=== PATIENT | female | born 1955 | race Caucasian/White ===

== ENCOUNTER 2020-12-08 11:26 | Outpatient (CLI) | payer BC, SELFPAY ==
--- NOTE | ~2020-12-08 | MM_ITS ---
EXAMINATION: MM screening harshal LT w douglas HISTORY: Screening mammogram TECHNIQUE: Craniocaudal and mediolateral oblique 3-D tomosynthesis images were obtained and synthetic 2-D images were generated. CAD analysis was submitted and interpreted. COMPARISON: 10/27/2019, 10/24/2018, 10/18/2017 left digital screening mammogram examinations BREAST PARENCHYMAL COMPOSITION: There are scattered areas of fibroglandular density. FINDINGS: There are occasional scattered benign calcifications. There is a stable benign intramammary lymph node in the upper outer quadrant of the left breast. There is no evidence of suspicious mass, calcification, or architectural distortion to suggest malignancy in either breast. There has been no suspicious interval change. IMPRESSION: 1. No mammographic evidence of malignancy. 2. Recommend routine screening mammography in one year. BI-RADS Category 2: Benign finding(s). Reviewed, dictated and finalized at location A. [employer]
== END 2020-12-08 11:27 | disposition home or self-care (01) ==
LOC: ANHIMG 11:29
PROVIDERS: Family Provider Family Medicine Adolescent Medicine; PCP Family Medicine Adolescent Medicine; Visit Provider Nurse Practitioner Obstetrics & Gynecology
DX: Z12.31 Encounter for screening mammogram for malignant neoplasm of breast (principal)
CPT/HCPCS: 77063; 77067

== ENCOUNTER 2021-01-25 07:43 | Outpatient (CLI) | payer BC, SELFPAY ==
--- NOTE | ~2021-01-25 | DEXA_ITS ---
Bone Density Report Name: Margot Vee Age: 65 Sex: Female Ethnicity: White Date of : 1955 Indication: postmenopausal; parental hip fracture; height loss; cancer; hysterectomy; Referring Provider: Cordelia, Maggie Flores Study: Bone densitometry was performed. Exam Date: January 25, 2021 Accession number: [id number] Bone Density: Region BMD T-score Z-score Classification AP Spine (L1-L4) 1.067 0.2 1.9 Normal Femoral Neck (Left) 0.624 -2.0 -0.5 Osteopenia Total Hip (Left) 0.912 -0.2 1.0 Normal Total Hip Bilateral Avg 0.903 -0.3 0.9 Normal Femoral Neck (Right) 0.691 -1.4 0.1 Osteopenia Total Hip (Right) 0.894 -0.4 0.8 Normal World Health Organization criteria for BMD impression classify patients as: Normal (T-score at or above -1.0), Osteopenia (T-score between -1.0 and -2.5), or Osteoporosis (T-score at or below -2.5). 10-year Fracture Risk(1): Major Osteoporotic Fracture 18% Hip Fracture 1.3% Reported Risk Factors: [place] (), Neck BMD=0.624, BMI=38.3, parental fracture (1) FRAX(R) Version 3.08. Fracture probability calculated for an untreated patient. Fracture probability may be lower if the patient has received treatment. Clinical Information Provided by Patient: Parent has had a hip fracture Has used the following medications: Vitamin D, Calcium Has the following medical conditions: Cancer, Hysterectomy Patient maximum height was 66 Menopause Age: 43 Drinks caffeinated beverages Onset of menses at age 14 Number of children 2 Impression: The patient has low bone mass, based on the Left Femoral Neck T-score. The patient has an estimated ten-year risk of hip fracture of 1.3% and an estimated ten-year risk of major fracture of 18%, based on the WHO FRAX algorithm. The patient has risk factors, including: parental hip fracture. Discussion: BONE DENSITY IS LOW AT ONE OR MORE SKELETAL SITES. This patient's lowest T-score is low at one or more skeletal sites. It meets the World Health Organization's (WHO) criteria for ?low bone mass? (T-score between -1.0 and -2.5). The patient's 10-year risk of fracture as calculated by FRAX is less than the threshold where pharmacological therapy is recommended by the National Osteoporosis Foundation (NOF). However, all treatment decisions require clinical judgment and consideration of individual patient factors, including patient preferences, comorbidities, previous drug use, risk factors not captured in the FRAX model (e.g., frailty, falls, vitamin D deficiency, increased bone turnover, interval significant decline in bone density) and possible under or overestimation of fracture risk by FRAX. The patient should follow a healthful lifestyle (good nutrition with adequate calcium and vitamin D, and appropriate weight-bearing exercise). Follow-Up:
== END 2021-01-25 07:44 | disposition home or self-care (01) ==
PROVIDERS: PCP Family Medicine Adolescent Medicine; Visit Provider Nurse Practitioner Obstetrics & Gynecology
DX: Z78.0 Asymptomatic menopausal state (principal); M85.852 Other specified disorders of bone density and structure, left thigh; M85.851 Other specified disorders of bone density and structure, right thigh
CPT/HCPCS: 77080

== ENCOUNTER 2021-02-21 11:40 | Outpatient (CLI) | payer BC, SELFPAY ==
--- NOTE | 2021-02-21 12:57 | ECG_ITS ---
Measurements Intervals [place] Rate: 51 P: 59 DE: 177 QRS: 14 QRSD: 99 T: 30 QT: 432 QTc: 398 Interpretive Statements SINUS BRADYCARDIA VOLTAGE CRITERIA FOR LVH BORDERLINE ECG Electronically Signed On 02-21-2021 13:36:38 CDT by Danilo Santacruz D.O.
[2021-02-21 13:30] LABS: Basophils Percent Auto 0.6 % (0.2-1.2); Eosinophils Absolute Auto 0.4 K/mm3 (0-0.3); Eosinophils Percent Auto 5.9 % (0-4.4); Hematocrit 37.7 % (37.0-47.0); Hemoglobin 12.2 g/dL (12.0-15.0); Immature Granulocyte Absolute 0.02 K/mm3 (0.00-0.031); Immature Granulocyte Percent A 0.3 % (0-0.5); Lymphocytes Absolute Auto 1.84 K/mm3 (0.9-3.2); Lymphocytes Percent Auto 28.4 % (18.3-44.2); Mean Corpuscular HGB Conc 32.4 g/dl (32-36); Mean Corpuscular Hemoglobin 30.6 pg (26-34); Mean Corpuscular Volume 94.5 fl (80-100); Mean Platelet Volume 9.2 fl (7.4-10.4); Monocytes Absolute Auto 0.4 K/mm3 (0.1-0.6); Monocytes Percent Auto 6.6 % (2.6-8.5); Neutrophils Absolute Auto 3.8 K/mm3 (1.3-6.7); Neutrophils Percent Auto 58.2 % (45.5-73.1); Platelet Count Result 194 k/mm3 (150-375); Red Blood Count 3.99 M/mm3 (4.2-5.4); Red Cell Distribution Width 13.3 % (11.5-14.5); White Blood Count 6.5 K/mm3 (4.5-10.0)
[2021-02-21 13:34] LABS: Add Urine Microscopic? YES; Appearance Urine Cloudy (Clear); Bacteria Urine Trace /hpf; Bilirubin Urine Negative (Negative); Color Urine Yellow (Yellow); Glucose Urine UA Negative (Negative); Ketones Urine Negative (Negative); Leukocyte Esterase Ur 2+ LEU/UL (Negative); Mucus Urine Rare /lpf; Nitrate Urine Negative (Negative); Protein Urine Negative (Negative); Squamous Epithelial Cell Urine Few /hpf (Few); Urobilinogen Urine Negative mg/dL (<2.0)
[2021-02-21 13:38] LABS: Hemoglobin A1C 5.2 % (<5.7)
[2021-02-21 13:42] LABS: Albumin Level 4.3 g/dL (3.5-5.1); Anion Gap 5 mmol/L (8-16); Blood Urea Nitrogen 31 mg/dL (7-17); Calcium 9.4 mg/dL (8.4-10.2); Carbon Dioxide 33 mmol/L (22-30); Chloride 101 mmol/L (98-107); Estimated Glomerular Filt Rate > 60; Glucose 80 mg/dL (65-105); INR 0.9; Potassium 4.5 mmol/L (3.4-5.0); Prothrombin Time 13.2 Seconds (11.1-14.7); Sodium 139 mmol/L (137-145)
[2021-02-21 13:43] LABS: Partial Thromboplastin Time 37.8 SECONDS (22.3-36.8)
[2021-02-21 13:45] LABS: Urine Cotinine NEGATIVE
[2021-02-21 13:46] LABS: Blood Urine Negative (Negative)
== END 2021-02-21 11:41 | disposition home or self-care (01) ==
LOC: ANHSURGERY 11:43
PROVIDERS: PCP Family Medicine Adolescent Medicine; Visit Provider Orthopaedic Surgery
DX: M17.12 Unilateral primary osteoarthritis, left knee (principal); Z01.818 Encounter for other preprocedural examination; R94.31 Abnormal electrocardiogram [ECG] [EKG]
CPT/HCPCS: 80048; 80307; 81001; 82040; 83036; 85025; 85610; 85730; 86850; 86900; 86901; 87081; 87086; 87088; 93005

== ENCOUNTER → 2021-02-26 01:29 | Outpatient (CLI) | payer BC, SELFPAY ==
[2021-02-26 19:16] LABS: SARS-CoV-2 RNA PCR Negative
== END ==
PROVIDERS: PCP Family Medicine Adolescent Medicine; Visit Provider Orthopaedic Surgery
DX: Z01.812 Encounter for preprocedural laboratory examination (principal); Z20.822 Contact with and (suspected) exposure to COVID-19
CPT/HCPCS: C9803; U0003; U0005

== ENCOUNTER 2021-03-02 14:34 | Inpatient (IN) | payer BC, SELFPAY ==
[2021-02-21 11:57] VITALS: BMI 37.8
[2021-02-21 12:27] VITALS: BP 151/79; PULSE 60; RESP 16; TEMP 36.7; O2SAT 99
[2021-03-02] VITALS (14 sets, daily range): BP systolic 103–162; BP diastolic 59–88; PULSE 64–87; RESP 10–20; TEMP 36–36.6; O2SAT 96–100
--- NOTE | ~2021-03-02 | XR_ITS ---
EXAMINATION: XR knee LT 2V DATE: 03/02/2021 13:36 INDICATION: Status post left total knee arthroplasty. TECHNIQUE: Portable AP and crosstable lateral views of the left knee were obtained. COMPARISON: 02/21/2021 FINDINGS: Left total knee arthroplasty without patellar resurfacing appears well seated and in near anatomic al ignment. No fractures identified. Skin miguel a and expected postoperative subcutaneous and intra-ar ticular gas. IMPRESSION: 1. Left total knee arthroplasty, negative for postoperative purposes. Reviewed, dictated and finalized at location A.
--- NOTE | 2021-03-02 07:21 | WPDHPUPDATE1 ---
History and Physical Update Update Date/Time: 03/02/21 07:21 History and Physical has been reviewed, including an updated exam of the patient. There are NO changes in the patient's condition. Risks, benefits, and alternatives have been discussed and questions answered. Patient agrees to proceed with procedure.
[2021-03-02] MEDS: ACETAMINOPHEN 500 MG TABLET 1000 MG PO (09:23)
--- NOTE | 2021-03-02 09:34 | WPDANESEPPF ---
Anes - Initial Pre Proc Eval Procedure: Operation Date: 03/02/21 11:00 Proposed Procedures p Left Total Knee Arthroplasty - Reece Kauffman MD Date/Time: 03/02/21 09:34 Surgeon: Reece Kauffman MD Pre Op Diagnosis: Left Knee DJD Patient Data Age: 65 Gender: F Height: 1.6 m Weight: 96 kg Last Vital Signs Temp 36.0 C L 03/02/21 08:54 Pulse 64 03/02/21 08:54 Resp 16 03/02/21 08:54 BP 151/66 H 03/02/21 08:54 Pulse Ox 98 03/02/21 08:54 Allergies Allergy/AdvReac Type Severity Reaction Status Date / Time adhesive tape Allergy Severe BLISTERS Verified 02/21/21 11:58 Penicillins Allergy Severe Rash Verified 02/21/21 11:58 niacin Allergy Intermediate HIVES AND Verified 03/02/21 09:12 ITCHING Home Medications Medication Instructions Recorded Confirmed Type acetaminophen 500 mg tablet 500 mg PO Q6H PRN 08/26/20 03/02/21 History ascorbate calcium (vitamin C) 500 500 mg PO DAILY tablet 08/26/20 03/02/21 History mg tablet aspirin 81 mg tablet,delayed 81 mg PO DAILY 08/26/20 03/02/21 History release atorvastatin 20 mg tablet 20 mg PO DAILY 08/26/20 03/02/21 History cetirizine 10 mg tablet 10 mg PO DAILY 08/26/20 03/02/21 History diclofenac sodium 75 mg 75 mg PO BID 08/26/20 03/02/21 History tablet,delayed release garlic 1,000 mg capsule 1,000 mg PO DAILY 08/26/20 03/02/21 History levothyroxine 125 mcg tablet 125 mcg PO DAILY 08/26/20 03/02/21 History lisinopril 10 mg tablet 10 mg PO DAILY 08/26/20 03/02/21 History omega-3 fatty acids 500 mg capsule 500 mg PO DAILY 08/26/20 03/02/21 History pediatric multivitamin no.17 1 tablet PO DAILY 08/26/20 03/02/21 History calcium carbonate-vitamin D3 2 cap PO DAILY 02/21/21 03/02/21 History [Calcium 600 with Vitamin D3] cholecalciferol (vitamin D3) 50 mcg PO DAILY 02/21/21 03/02/21 History cyanocobalamin (vitamin B-12) 1,000 mcg PO DAILY 02/21/21 03/02/21 History diphenhydramine HCl [Benadryl] 25 mg PO HS 02/21/21 03/02/21 History pyridoxine (vitamin B6) 100 mg PO DAILY 02/21/21 03/02/21 History tramadol 50 mg tablet 50 mg PO BID PRN #30 tablet 02/21/21 03/02/21 Rx ciprofloxacin HCl 500 mg tablet 500 mg PO Q12H #14 tablet 02/28/21 03/02/21 Rx Patient hx anesthesia problems: none Family hx anesthesia problems: none PMFSH Past Medical History Medical History (Updated 03/01/21 @ 13:17 by Karthik Paulino DO) Abnormality of heart beat Arthritis Bilateral knee pain BMI greater than 40 Degenerative joint disease of knee High cholesterol History of right breast cancer Hypertension Hypothyroidism IT band syndrome Osteoporosis PONV (postoperative nausea and vomiting) Thyroid function study abnormality Trochanteric bursitis, right hip Vision abnormalities Surgical History Surgical History (Updated 03/01/21 @ 13:17 by Karthik Paulino DO) History of hysterectomy History of total right knee replacement History of tubal ligation Total knee replacement status Family History Family History Other Diabetes mellitus Family history of arthritis Family history of cardiovascular disease Family history of lung disease Social History Social History Smoking status: Never smoker Additional smoking assessment comments: DENIES ANY FORM OF TOBACCO USE Alcohol intake: current Living arrangements: with family Spiritual care concerns: No Anes - Eval Final PreProcedure Day of Procedure 03/02/21 09:34 Patient weight: obese Heart: regular rate and rhythm Lungs: clear to auscultation and normal air movement Airway: Mallampati scale class II Neurological: alert and oriented Last oral intake: >/= 8 hours ASA classification: III Emergent: no Anesthetic plan: proceed Anesthesia type and monitoring: general LMA and standard monitoring Informed Consent: The patient's anesthetic plan and its attendant risks and benefits we
--- NOTE | 2021-03-02 09:35 | WPDANESPNB ---
Anes - Peripheral Nerve Block Date/Time: 03/02/21 09:35 I have discussed with the patient/family/POA the placement of a peripheral nerve block for post-operative pain management, including associated risks, benefits, complications, and side effects. Alternative methods of post-operative analgesia were detailed. Questions were solicited and answers provided to the satisfaction of the patient/family/POA. Time-Out: A pre-procedural Time-Out was completed immediately before starting the procedure and confirmed: Patient Identification, Site, Procedure, Patient Position and the Availability of Requisite Equipment. Clinical Indications: Acute post-operative pain management requested by the operative surgeon. Nerve Block Insertion Note Anes-nerve block: adductor canal left Patient position: supine Skin prep: chlorhexidine Needle: 22 gauge, stimulating, insulated echogenic needle. Needle length: 80 mm Technique: ultrasound Injectate: bupivacaine 0.5% with epi 5 mcg/ml (30cc - no epi) Observations: tolerated well Complications: none Procedure start time:: 1044 Procedure end time:: 1047
[2021-03-02] MEDS: LACTATED RINGERS 1,000 ML 30 ML IV CONT ×2 (09:48→13:19)
[2021-03-02 10:15] LABS: Partial Thromboplastin Time 33.2 SECONDS (22.3-36.8)
[2021-03-02] MEDS: TRANEXAMIC ACID 1,000MG/ISO100 1,000 MG/100 ML BAG 200 MG IVPB (10:25)
[2021-03-02] MEDS: ceFAZolin 2 GM/D5W 50 ML 2 GM/50 ML BAG IVPB ×2 (11:05→18:27)
[2021-03-02] MEDS: GENTAMICIN BONE CEMENT REFOBACIN 1 EACH TOPICAL (12:12)
--- NOTE | 2021-03-02 13:15 | PM.PROC ---
Procedure Note - Detailed Date of procedure: 03/02/21 Pre-op diagnosis: Left Knee DJD Post-op diagnosis: same Procedure performed: L TKA Description of procedure: THE LEFT KNEE WAS PREPPED AND DRAPED IN THE STERILE FASHION. A MIDLINE SKIN INCISION WAS MADE. A MEDIAL PARAPATELLAR ARTHROTOMY WAS MADE. THE PATELLA WAS EVERTED. THERE WAS TRICOMPARTMENT DJD. THERE WAS MINIMAL PATELLA DJD. AN INTRAMEDULLARY CARLY WAS PLACED IN THE FEMUR. A DISTAL FEMORAL CUT WAS MADE IN 5 DEGREES OF VALGUS REMOVING APPROXIMATELY 9 MM OF BONE FROM THE DISTAL FEMUR. THE FEMUR WAS SIZED TO 65. A 65 FEMORAL CUTTING BLOCK WAS PLACED IN 3 DEGREES OF EXTERNAL ROTATION AND IN ALIGNMENT WITH JOE'S LINE AND THE TRANSEPICONDYLAR AXIS. ANTERIOR POSTERIOR AND CHAMFER CUTS WERE MADE. THE CUTS WERE EXCELLENT. NEXT AN INTRAMEDULLARY CUTTING GUIDE WAS PLACED IN THE TIBIA. A TRANS TIBIAL CUT WAS MADE ALONG THE LONG AXIS OF THE TIBIA. APPROXIMATELY 10 MM OF BONE WAS REMOVED FROM THE HIGH SIDE OF THE TIBIA. THE TIBIA WAS THEN PLANED TO A SMOOTH SURFACE. POSTERIOR FEMORAL OSTEOPHYTES WERE REMOVED FROM THE FEMORAL CONDYLES. A 75 TIBIAL TRIAL WAS PLACED IN ALIGNMENT WITH THE 1/3 MEDIAL ASPECT OF THE TIBIAL TUBERCLE. THEN A 65 FEMORAL TRIAL COMPONENT WAS PLACED. BOTH HAD EXCELLENT FITS. A 10 MM POLYETHYLENE TRIAL COMPONENT WAS PLACED. THE KNEE WAS TAKEN THROUGH A RANGE OF MOTION. THE KNEE CAME OUT TO FULL EXTENSION. THERE WAS NO ABNORMAL TILT TO THE PATELLA. THERE WAS GOOD A/P AND VARUS/VALGUS STABILITY. THERE WAS NO EXCESSIVE ROLL BACK WITH FLEXION. THE TRIAL COMPONENTS WERE REMOVED. THEN A 65 FEMORAL COMPONENT AND 75 TIBIAL COMPONENT WITH A 10 CR POLYETHYLENE COMPONENT WERE CEMENTED INTO PLACE. ONCE THE CEMENT WAS HARD THE KNEE WAS TAKEN THROUGH A ROM AGAIN AND FOUND TO BE STABLE WITH NO PATELLA TILT NO EXCESSIVE ROLL BACK WITH FLEXION AND GOOD STABILITY WITH COMPLETE AND FULL EXTENSION. THE KNEE WAS IRRIGATED WITH STERILE BETADINE AND WATER FOR ABOUT 3 MINUTES. THE BLEEDERS WERE CAUTERIZED. THE ARTHROTOMY WAS REPAIRED WITH NUMBER 1 VICRYL. THE SUB CUTANEOUS LAYER WITH 2-0 VICRYL AND THE SKIN WITH DARNELL. THE WOUND WAS WASHED AND A STERILE DRESSING WAS APPLIED. PATIENT WAS EXTUBATED. Anesthesia: GETA Surgeon: Reece Kauffman MD Estimated blood loss (mL): 100 Complications: No immediate complications Condition: stable Disposition: PACU
[2021-03-02] MEDS: fentaNYL CITRATE INJ (*CRX) 100 MCG/2 ML VIAL 25 MCG IV PUSH ×8 (13:39→14:20)
[2021-03-02] MEDS: SODIUM CHLORIDE 0.9% IV 1,000 ML 125 ML IV CONT ×2 (14:58→23:13)
[2021-03-02] MEDS: oxyCODONE/ACETAMINOPHEN (*CRX) 5-325 MG TABLET 1 TABLET PO ×2 (15:02→20:36)
[2021-03-02] MEDS: ONDANSETRON INJ 4 MG/2 ML VIAL IV PUSH ×2 (15:56→20:36)
--- NOTE | 2021-03-02 16:10 | ADMGEN ---
This patient, Margot Vee, was admitted to Medical Room 243-01 from PACU reprot received from Ramila RHODES. Patient/family oriented to hospital policies and general routines including ID bracelet, bed and alarms, visiting hours, pain management, procedures, bathroom and other care routines, personal items, smoking policy, room service/diet, and visiting hours. Information on how to activate the Rapid Response Team has been discussed. Patient/Family are encouraged to report perceived risks to care and to ask questions if they do not understand what they are told or what they should do.
[2021-03-02] MEDS: DOCUSATE SODIUM 100 MG CAPSULE PO (17:13)
[2021-03-02] MEDS: FAMOTIDINE 20 MG TABLET PO (20:38)
[2021-03-03] MEDS: ONDANSETRON INJ 4 MG/2 ML VIAL IV PUSH ×2 (00:37→06:04)
[2021-03-03] MEDS: oxyCODONE/ACETAMINOPHEN (*CRX) 5-325 MG TABLET 1 TABLET PO ×4 (00:37→15:44)
[2021-03-03] MEDS: ceFAZolin 2 GM/D5W 50 ML 2 GM/50 ML BAG IVPB ×2 (03:05→10:33)
[2021-03-03 04:19] VITALS: BP 131/61; PULSE 72; RESP 16; TEMP 36.2; O2SAT 100
[2021-03-03] MEDS: LEVOTHYROXINE SODIUM 125 MCG TABLET PO (05:33)
[2021-03-03 05:36] LABS: Basophils Percent Auto 0.1 % (0.2-1.2); Hematocrit 31.3 % (37.0-47.0); Hemoglobin 10.3 g/dL (12.0-15.0); Immature Granulocyte Absolute 0.03 K/mm3 (0.00-0.031); Immature Granulocyte Percent A 0.3 % (0-0.5); Lymphocytes Absolute Auto 0.86 K/mm3 (0.9-3.2); Mean Corpuscular HGB Conc 32.9 g/dl (32-36); Mean Corpuscular Hemoglobin 30.7 pg (26-34); Mean Corpuscular Volume 93.4 fl (80-100); Mean Platelet Volume 9.1 fl (7.4-10.4); Monocytes Absolute Auto 0.9 K/mm3 (0.1-0.6); Monocytes Percent Auto 10.4 % (2.6-8.5); Neutrophils Absolute Auto 6.8 K/mm3 (1.3-6.7); Neutrophils Percent Auto 79.2 % (45.5-73.1); Platelet Count Result 183 k/mm3 (150-375); Red Blood Count 3.35 M/mm3 (4.2-5.4); Red Cell Distribution Width 13.2 % (11.5-14.5); White Blood Count 8.6 K/mm3 (4.5-10.0)
[2021-03-03 05:51] LABS: Anion Gap 5 mmol/L (8-16); Blood Urea Nitrogen 14 mg/dL (7-17); Calcium 8.8 mg/dL (8.4-10.2); Carbon Dioxide 31 mmol/L (22-30); Chloride 99 mmol/L (98-107); Estimated CRCL calculation 77 ml/min; Estimated Glomerular Filt Rate > 60; Glucose 114 mg/dL (65-105); Potassium 4.2 mmol/L (3.4-5.0); Sodium 135 mmol/L (137-145)
[2021-03-03 05:53] VITALS: BP 128/62; PULSE 72; RESP 16; TEMP 36.7; O2SAT 100
--- NOTE | 2021-03-03 07:46 | WPDANESPN ---
Anes - Prog Note Post-Op Date/Time: 03/03/21 07:47 Cardiovascular status: normal Respiratory status: normal Airway patency: baseline Mental status: baseline Post-Op hydration status: normal Vital Signs: Last Vital Signs Temp 36.7 C 03/03/21 05:53 Pulse 72 03/03/21 05:53 Resp 16 03/03/21 05:53 BP 128/62 03/03/21 05:53 Pulse Ox 100 03/03/21 05:53 Pain Score (VAS): 0 I/O: Intake & Output 03/02/21 03/02/21 03/03/21 15:59 23:59 07:59 Intake Total 550 1440 550 Output Total 800 Balance 550 1440 -250 Laboratory Tests 03/03/21 05:13 03/03/21 05:13 03/02/21 03/03/21 03/03/21 09:38 05:13 05:13 WBC 8.6 RBC 3.35 L Hgb 10.3 L Hct 31.3 L MCV 93.4 MCH 30.7 MCHC 32.9 RDW 13.2 Plt Count 183 MPV 9.1 Immature Gran % (Auto) 0.3 Neut % (Auto) 79.2 H Lymph % (Auto) 10.0 L [place] % (Auto) 10.4 H Eos % (Auto) 0.0 Baso % (Auto) 0.1 L Lymph # (Auto) 0.86 L [place] # (Auto) 0.9 H Eos # (Auto) 0.0 Baso # (Auto) 0.0 Abs Immat Gran (auto) 0.03 Absolute Neuts (auto) 6.8 H Absolute Nucleated RBC 0.0 Nucleated RBC % 0.0 APTT 33.2 Sodium 135 L Potassium 4.2 Chloride 99 Carbon Dioxide 31 H Anion Gap 5 L BUN 14 D Creatinine 0.70 Estim Creat Clear Calc 77 Estimated GFR > 60 Glucose 114 H Calcium 8.8 Post-procedural complaints: none Patient Feedback: Patient satisfied with anesthetic care.
[2021-03-03 08:19] VITALS: BP 130/46; PULSE 79; RESP 20; TEMP 36; O2SAT 96
[2021-03-03] MEDS: CELECOXIB 200 MG CAPSULE PO ×2 (08:43→16:16)
[2021-03-03] MEDS: ASPIRIN 325 MG ENTERIC TABLET 650 MG PO (08:43)
[2021-03-03] MEDS: DOCUSATE SODIUM 100 MG CAPSULE PO ×2 (08:43→16:17)
[2021-03-03] MEDS: ATORVASTATIN 20 MG TABLET PO (08:44)
[2021-03-03] MEDS: lisinopriL 10 MG TABLET PO (08:44)
[2021-03-03] MEDS: FAMOTIDINE 20 MG TABLET PO (08:44)
--- NOTE | 2021-03-03 09:10 | PM.PNORT ---
Progress Note: A&P Assessment and Plan (1) Total knee replacement status: Qualifiers: Laterality: right Qualified Code(s): Z96.651 - Presence of right artificial knee joint Code(s): Z96.659 - Presence of unspecified artificial knee joint Status: Acute Assessment and Plan: POD #1: Left TKA Continue PT/OT. WBAT. Walker. HIGH FALL RISK. Continue pain control. Ice. No pillow under knee. Continue DVT prophylaxis. SCDs. Incentive Spirometry. Monitor Dressing. Change prior to discharge. Dispo: Home with Home Health pending progress with PT/OT. Subjective Subjective Date/Time Seen: 03/03/21 09:10 POD #1: Left TKA No new complaints. Pain well controlled. Sitting up in chair. Review of Systems Review of Systems: All systems reviewed & are unremarkable except as noted in HPI and below Constitutional: Constitutional: Denies chills, Denies fatigue, Denies fever(s) and Denies headache(s) ENT: Denies headache(s) Cardiovascular: Cardiovascular: Denies chest pain, Denies diaphoresis, Denies palpitations and Denies dyspnea Respiratory: Respiratory: Denies dyspnea Gastrointestinal: Gastrointestinal: Denies abdominal pain, Denies constipation, Denies nausea and Denies vomiting Genitourinary: Genitourinary: Reports nocturia and Denies dysuria Musculoskeletal: Musculoskeletal: Reports arthralgias (Left Knee ), Reports joint swelling (Left Knee ) and Reports limited range of motion (ROM limited due to recent surgical intervention LEFT Knee ) Neurologic: Denies headache(s) Endocrine: Endocrine: Denies palpitations Exam Const: General: comfortable and no acute distress Resp: Effort & Inspection: normal respiratory effort Cardio: Rate: regular rate Rhythm: regular rhythm GI: GI Palp: Yes Soft to palpation, No Tenderness to palpation present (GI) and No Guarding due to palpation present (GI) Skin: Wounds: wounds noted Other: Incision c/d/i. No surrounding redness/warmth. No hematoma. Mild ecchymosis. No wound dehiscence Neuro: Cognition (Neuro): normal cognition Other: NV intact aside from block. Moves toes. Sensation intact to light touch. +ankle dorsiflexion/plantarflexion. Extrem: Left lower extremity: normal to inspection, normal capillary refill, knee Details: tenderness (diffuse ), swelling (moderate consistent to recent surgery ), abnormal ROM (limited due to recent surgery ) and ecchymosis (as expected with recent surgery. NO hematoma. ), lower leg (Negative Chilo's Sign ) Details: no edema, ankle (+ankle dorsiflexion/plantarflexion ) Details: normal to inspection and normal ROM and foot Details: normal capillary refill, vascular exam Details: dorsalis pedis pulse present and motor-sensory exam two point discrimination normal and light-touch normal Other: Incision left TKA dressing c/d/i. No hematoma. No signs of infection. No wound dehiscence. Psych: Mental Status: mental status grossly normal Objective Data Vital Signs Vital Signs: Vital Signs - 24 hr 03/02/21 13:19 03/02/21 13:30 03/02/21 13:45 Temperature 36.5 C Pulse Rate 82 87 86 Respiratory Rate 10 L 20 20 Blood Pressure 103/59 L 115/62 136/79 Pulse Oximetry 96 100 100 03/02/21 14:00 03/02/21 14:15 03/02/21 14:30 Temperature Pulse Rate 85 85 80 Respiratory Rate 18 18 16 Blood Pressure 145/80 H 150/81 H 140/75 Pulse Oximetry 99 99 03/02/21 14:40 03/02/21 14:55 03/02/21 15:25 Temperature 36.6 C 36.5 C 36.5 C Pulse Rate 75 75 73 Respiratory Rate 16 16 16 Blood Pressure 156/77 H 151/65 H 153/78 H Pulse Oximetry 100 100 97 03/02/21 16:25 03/02/21 18:00 03/02/21 22:10 Temperature 36.5 C 36.5 C 36.3 C L Pulse Rate 72 80 84 Respiratory Rate 16 18 16 Blood Pressure 162/85 H 151/73 H 129/88 Pulse Oximetry 96 100 98 03/02/21 22:11 03/03/21 04:19 03/03/21 05:53 Temperature 36.3 C L 36.2 C L 36.7 C Pulse Rate 84 72 72 Respiratory Rate 16 16 16 Blood Pressure 134/59 L 131/61 128/62 Pulse
[2021-03-03 10:41] VITALS: O2SAT 96
[2021-03-03 12:19] VITALS: BP 124/58; PULSE 76; RESP 20; TEMP 36.8; O2SAT 97
--- NOTE | 2021-03-03 14:06 | PM.DS ---
DS: Admitting Diagnosis Admitting Diagnosis Admitting Diagnosis: Left knee DJD DS: Discharge Diagnosis Discharge Diagnosis (1) Total knee replacement status: Qualifiers: Laterality: right Qualified Code(s): Z96.651 - Presence of right artificial knee joint Code(s): Z96.659 - Presence of unspecified artificial knee joint Status: Acute Assessment and Plan: POD #1: Left TKA Continue PT/OT. WBAT. Walker. HIGH FALL RISK. Continue pain control. Ice. No pillow under knee. Continue DVT prophylaxis. SCDs. Incentive Spirometry. Monitor Dressing. Change prior to discharge. Dispo: Home with Home Health pending progress with PT/OT. DS: Summary Hospital Course Reason for hospitalization: left total knee arthroplasty Hospital Course: 65-year-old female admitted status post left total knee arthroplasty for postoperative medical management, pain control and physical/occupational therapy. Patient progressed well with PT and OT on postop day 1. No postop complications noted. Patient's pain has been well controlled. She has been cleared by Physical therapy and Occupational therapy to be discharged home with home health this time. She will go home with home health and will follow up in the outpatient orthopedic clinic in approximately 3 weeks. Her dressing will be changed prior to discharge. She will be sent home with 1 additional dressing to be changed in 5 days by the home health nurse. All questions were answered and patient felt prepared for discharge. Status at Discharge Functional status at discharge: uses cane/walker Overall status at discharge: patient is back to baseline Time Spent with Patient Time attestation: Total time spent providing and/or coordinating discharge services: Exam Const: General: comfortable and no acute distress Resp: Effort & Inspection: normal respiratory effort Cardio: Rate: regular rate Rhythm: regular rhythm GI: GI Palp: Yes Soft to palpation, No Tenderness to palpation present (GI) and No Guarding due to palpation present (GI) Skin: Wounds: wounds noted Other: Incision c/d/i. No surrounding redness/warmth. No hematoma. Mild ecchymosis. No wound dehiscence Neuro: Cognition (Neuro): normal cognition Other: NV intact aside from block. Moves toes. Sensation intact to light touch. +ankle dorsiflexion/plantarflexion. Extrem: Left lower extremity: normal to inspection, normal capillary refill, knee, lower leg (Negative Chilo's Sign ), ankle (+ankle dorsiflexion/plantarflexion ) and foot Other: Incision left TKA dressing c/d/i. No hematoma. No signs of infection. No wound dehiscence. Psych: Mental Status: mental status grossly normal DS: Data Data Completed and Pending Labs on day of discharge: Labs from last 24 hours 03/03/21 03/03/21 05:13 05:13 WBC 8.6 RBC 3.35 L Hgb 10.3 L Hct 31.3 L MCV 93.4 MCH 30.7 MCHC 32.9 RDW 13.2 Plt Count 183 MPV 9.1 Immature Gran % (Auto) 0.3 Neut % (Auto) 79.2 H Lymph % (Auto) 10.0 L [place] % (Auto) 10.4 H Eos % (Auto) 0.0 Baso % (Auto) 0.1 L Lymph # (Auto) 0.86 L [place] # (Auto) 0.9 H Eos # (Auto) 0.0 Baso # (Auto) 0.0 Abs Immat Gran (auto) 0.03 Absolute Neuts (auto) 6.8 H Absolute Nucleated RBC 0.0 Nucleated RBC % 0.0 Sodium 135 L Potassium 4.2 Chloride 99 Carbon Dioxide 31 H Anion Gap 5 L BUN 14 D Creatinine 0.70 Estim Creat Clear Calc 77 Estimated GFR > 60 Glucose 114 H Calcium 8.8 Discharge Plan Discharge Attending physician on discharge: Reece Kauffman Discharging Clinician: Anamaria Granados Anticipated Discharge Date/Time: 03/03/21 15:00 Patient Disposition: Home Health Service Activity: may shower Diet: as tolerated and regular Wound Care Instructions: follow printed instructions Discharge Instructions: Post Op Total Knee Replacement Instructions Dr. Reece Kauffman [phone] ?Your dressing
== END 2021-03-03 16:27 | disposition home health service (06) | DRG 470 ==
LOC: ANH2MED 14:49
PROVIDERS: Admitting Provider Orthopaedic Surgery; PCP Family Medicine Adolescent Medicine; Visit Provider Nurse Practitioner Family
PROC: 0SRD0J9 Replacement of Left Knee Joint with Synthetic Substitute, Cemented, Open Approach (ICD-10-PCS; CPT 27447; principal; 2021-03-02 11:00)
DX: M17.12 Unilateral primary osteoarthritis, left knee (principal); M81.0 Age-related osteoporosis without current pathological fracture; M70.61 Trochanteric bursitis, right hip; E03.9 Hypothyroidism, unspecified; I10 Essential (primary) hypertension; Z96.651 Presence of right artificial knee joint; E66.9 Obesity, unspecified; Z68.37 Body mass index [BMI] 37.0-37.9, adult; Z85.3 Personal history of malignant neoplasm of breast; Z90.710 Acquired absence of both cervix and uterus
CPT/HCPCS: 36415; 73560; 80048; 85025; 85730; 97110; 97116; 97161; 97165; A9270; C1713; C1776; J0171; J0690; J1100; J1170; J2250; J2270; J2405; J2704; J2795; J3010; J7030; J7120